=== PATIENT | male | born 1950 | race Caucasian/White ===

== ENCOUNTER 2019-06-06 09:45 | Emergency (ER) | payer MEDICARE ==
[~2019-06-06] VITALS: Ht 170.1 cm; Wt 60.3 kg
[2019-06-06] MEDS ORDERED: ELIQUIS5 M1 PO (09:53)
[2019-06-06] MEDS ORDERED: ASPIR LOW81 MG PO (10:10)
[2019-06-06] MEDS ORDERED: PULMICORT RESP0.5 M1 INH (10:10)
[2019-06-06] MEDS ORDERED: PRAVACHOL20 MG PO (10:11)
[2019-06-06] MEDS ORDERED: METOPROLOL25 MG PO (10:11)
[2019-06-06] MEDS ORDERED: ZOLOFT50 MG PO (10:11)
[2019-06-06 10:56] LABS: BASO # 0.1 10*3/uL (0.0-0.1); BASO % 0.5 % (0.0-1.0); EOS % 0.1 % (1.0-4.0); HEMATOCRIT 27.8 % (42.0-52.0); HEMOGLOBIN 8.7 g/dl (14.0-18.0); LYMPH # 0.8 10*3/uL (1.3-4.4); LYMPH % 4.4 % (27.0-41.0); MEAN CELL VOLUME 87.1 fl (80.0-94.0); MEAN CORPUSCULAR HGB 27.3 pg (27.0-31.0); MEAN CORPUSCULAR HGB CONC 31.3 g/dl (33.0-37.0); MEAN PLATELET VOLUME 8.3 fl (9.6-12.3); MONO # 1.4 10*3/uL (0.1-1.0); MONO % 7.4 % (3.0-9.0); NEUT # 16.4 10*3/uL (2.3-7.9); NEUT % 87.2 % (47.0-73.0); PLATELET COUNT AUTOMATED 705 10*3/uL (130-400); RED BLOOD COUNT 3.19 10*6/uL (4.50-5.90); RED CELL DISTRI WIDTH 16.8 % (0-14.5); WHITE BLOOD COUNT 18.8 10*3/uL (4.8-10.8)
[2019-06-06 11:13] LABS: ALBUMIN 2.5 gm/dl (3.1-4.5); ALKALINE PHOSPHATASE 145 U/L (45-117); BUN 10 mg/dl (7-24); CHLORIDE 106 mmol/L (98-107); CREATININE 0.68 mg/dL (0.70-1.30); POTASSIUM 3.7 mmol/L (3.5-5.1); SGOT/AST 10 IU/L (3-35); SGPT/ALT 25 U/L (12-78); SODIUM 139 mmol/L (136-145); TOTAL PROTEIN 7.3 gm/dL (6.4-8.2); TROPONIN I 0.019 ng/ml (<0.045)
[2019-06-06 13:58] LABS: BILIRUBIN NEGATIVE (NEGATIVE); BLOOD NEGATIVE (NEGATIVE); CLARITY SL CLOUDY (CLEAR); COLOR YELLOW (YELLOW); GLUCOSE NEGATIVE (NEGATIVE); KETONE TRACE (NEGATIVE); LEUKO ESTERASE NEGATIVE (NEGATIVE); NITRITE NEGATIVE (NEGATIVE); PH 6.5 (5.0-9.0); UROBILINOGEN 0.2 E.U./dl (0.2-1.0)
[2019-06-06 14:11] LABS: MUCOUS 2+
== END 2019-06-07 00:45 | disposition short-term general hospital (02) ==
LOC: ED 09:45
PROVIDERS: Family Medicine
DX: A41.9 Sepsis, unspecified organism (principal); J18.1 Lobar pneumonia, unspecified organism; R64 Cachexia; I48.91 Unspecified atrial fibrillation; E78.5 Hyperlipidemia, unspecified; G43.909 Migraine, unspecified, not intractable, without status migrainosus; J44.9 Chronic obstructive pulmonary disease, unspecified; I11.0 Hypertensive heart disease with heart failure; I50.9 Heart failure, unspecified; F17.200 Nicotine dependence, unspecified, uncomplicated; Z79.82 Long term (current) use of aspirin; Z79.899 Other long term (current) drug therapy